=== PATIENT | male | born 1975 | race Caucasian/White ===

== ENCOUNTER 2022-12-05 07:58 | Outpatient (OUT) | payer BC, OTHER, SELFPAY ==
--- NOTE | 2022-12-05 08:20 | ECG_ITS ---
[facility] Test Date: 2022-12-05 Pat Name: Driss Nunez Department: Room: - Gender: Male Cost Estimating Engineer: : 1975 Requested By: KASSANDRA JUAN Order Number: [id number] Reading MD: CECIL SU Measurements Intervals Beyer Rate: 45 P: 19 SD: 160 QRS: -8 QRSD: 109 T: 11 QT: 415 QTc: 362 Interpretive Statements SINUS BRADYCARDIA Non-Specific T wave inversion in III No previous ECG available for comparison Electronically Signed On 12-08-2022 7:44:48 EDT by CECIL SU
[2022-12-05 09:26] LABS: Basophils Percent Auto 0.4 % (0.2-2.0); Eosinophils Absolute Auto 0.1 10^3/uL (0.0-0.7); Hematocrit 44.8 % (42.0-54.0); Hemoglobin 16.2 g/dL (14.0-18.0); Immature Granulocytes Abs Auto 0.01 10^3/uL (0.00-0.03); Immature Granulocytes Pct Auto 0.2 % (0.0-0.5); Lymphocytes Absolute Auto 1.4 10^3/uL (1.2-3.8); Lymphocytes Percent Auto 24.7 % (20.5-60.0); Mean Corpuscular HGB Conc 36.2 g/dL (29.9-35.2); Mean Corpuscular Hemoglobin 28.7 pg (25.9-34.0); Mean Corpuscular Volume 79.4 fL (80.0-94.0); Mean Platelet Volume 8.8 fL (9.5-13.5); Monocytes Absolute Auto 0.5 10^3/uL (0.3-0.8); Monocytes Percent Auto 8.8 % (1.7-12.0); Neutrophils Absolute Auto 3.6 10^3/uL (1.4-6.5); Neutrophils Percent Auto 63.9 % (43.0-75.0); Platelet Count 161 10^3/uL (150-450); Red Blood Count 5.64 10^6/uL (4.70-6.10); Red Cell Distribution Width 12.6 % (11.0-15.0); White Blood Count 5.6 10^3/uL (4.0-11.0)
--- NOTE | 2022-12-05 09:27 | P.GSHP_ITS ---
History of Present Illness History of Present Illness Chief complaint: PAT visit Narrative: Patient is a very pleasant 47-year-old male who presents for preadmission testing. The patient states he's been struggling with scrotal pain and swelling, and it has been determined that he has multiple spermatoceles. He denies dysuria, hematuria, abdominal pain, nausea, vomiting, or any other complaints. He does have a history of anxiety, hypertension, and chest pain, he has been evaluated by cardiology and has been determined that his chest pain is not from a cardiac condition. Review of Systems ROS Narrative REVIEW OF SYSTEMS: Negative except as stated in HPI, ten or more systems reviewed. Constitutional: No fever , chills, weakness ENT: No sore throat or epistaxis Cardiovascular: No edema, chest pain, palpitations, or activity intolerance Respiratory: No shortness of breath, cough, or wheezing Musculoskeletal: No joint pain or swelling Gastrointestinal: No abdominal pain, constipation, diarrhea, or vomiting Genitourinary: No dysuria or hematuria Neurological: No numbness, tingling, weakness, or headache Psychiatric: No mood changes PFSH PFS Medical History (Updated 12/05/22 @ 08:38 by Millicent Slade NP) Surgical History (Updated 12/05/22 @ 08:38 by Millicent Slade NP) Family History (Updated 12/05/22 @ 08:38 by Millicent Slade NP) Other Family history of diabetes mellitus Family history of hypertension Rectal cancer Social History (Updated 12/05/22 @ 08:35 by Millicent Slade NP) Within the past year, how often did you have a drink containing alcohol: monthly or less Smoking status: Never smoker Non-prescribed substance use: denies use Previous occupational history: Food And Beverage Assistant Highest level of school completed/degree received: Bachelor's degree Meds Home Medications and Allergies Home Medications Medication Instructions Recorded Confirmed Type amlodipine 5 mg tablet 5 mg PO QDAY 12/05/22 12/05/22 History chlorthalidone 25 mg tablet 25 mg PO .qod 12/05/22 12/05/22 History escitalopram oxalate 10 mg tablet 10 mg PO QDAY 12/05/22 12/05/22 History losartan 100 mg tablet 100 mg PO QDAY 12/05/22 12/05/22 History nebivolol 5 mg tablet 5 mg PO QDAY 12/05/22 12/05/22 History Allergies Allergy/AdvReac Type Severity Reaction Status Date / Time aspirin Allergy Unknown Verified 12/05/22 08:31 Penicillins Allergy Unknown Verified 12/05/22 08:31 Exam Narrative Exam Narrative: Constitutional: Awake, alert, comfortable, well-appearing, nontoxic, interactive, vital signs as charted Head: Normocephalic, atraumatic Neck: Supple, normal appearance, normal range of motion, no meningeal signs, no lymphadenopathy Respiratory: No respiratory distress, breath sounds clear Cardiovascular: Regular rate and rhythm, strong and regular heart tones Abdomen: Nontender, normal bowel sounds, soft, no CVA tenderness Musculoskeletal: Normal gait, no swelling or edema Skin: No rashes or induration, no lesions, only visible skin inspected Neuro: No neurological deficits, normal sensation Psychiatric: Oriented ?3, normal affect Assessment and Plan Assessment and Plan (1) Spermatocele: Plan Left spermatocele ectomy scheduled with Dr. Angulo 12/18/2022.
[2022-12-05 09:34] LABS: Anion Gap 10.9; Calcium 8.6 mg/dL (8.5-10.1); Carbon Dioxide 27.1 mmol/L (21.0-32.0); Chloride 105 mmol/L (98-107); Estimated GFR (African America >60 (>=60); Estimated GFR (Non-African Ame >60 (>=60); Glucose 100 mg/dL (74-106); Sodium 139 mmol/L (136-145)
[2022-12-05 09:52] LABS: INR 1.01; Partial Thromboplastin Time 27.3 sec (22.3-36.2); Prothrombin Time 10.7 sec (9.0-11.6)
== END 2022-12-05 07:59 ==
PROVIDERS: Urology
DX: Z01.810 Encounter for preprocedural cardiovascular examination (principal); Z01.812 Encounter for preprocedural laboratory examination; N43.40 Spermatocele of epididymis, unspecified; M10.9 Gout, unspecified; G43.909 Migraine, unspecified, not intractable, without status migrainosus; H40.9 Unspecified glaucoma; F32.A Depression, unspecified; I10 Essential (primary) hypertension
CPT/HCPCS: 36415; 80048; 85025; 85610; 85730; 93005; G0463

== ENCOUNTER 2022-12-18 06:25 | Day surgery (SDC) | payer BC, OTHER, SELFPAY ==
[2022-12-05 08:36] VITALS: BP 117/77; PULSE 52; RESP 16; TEMP 36.3; O2SAT 97; BMI 32.3
[2022-12-18] VITALS (9 sets, daily range): BP systolic 97–133; BP diastolic 54–84; PULSE 60–88; RESP 10–18; TEMP 36.3–36.9; O2SAT 92–98; BMI 32.4
[2022-12-18] MEDS: LACTATED RINGER'S SOLUTION 1,000 ML 50 ML IV ×2 (07:02→09:09)
[2022-12-18] MEDS: CIPROFLOXACIN IN 5 % DEXTROSE 400 MG/200 ML PIGGYBACK 200 MG IV (07:26)
[2022-12-18] MEDS: BACITRACIN OINTMENT 28.4 GM TUBE 1 APPLIC TOPICAL (09:30)
--- NOTE | 2022-12-18 09:36 | PM.URSON ---
Urology Surgery Operative Note Operative Note Procedure Date: 12/18/22 Time Out Performed: yes Pre-op Diagnosis: multiple left spermatoceles Post-op Diagnosis: same Procedures performed: #1. Left hemiscrotal exploration. #2. Left spermatocele ectomy ?5. #3. Left hydrocelectomy. Anesthesia: other (Gen. by LMA) Primary Surgeon: Jack Angulo Complications: none Estimated blood loss (mL): 5 Findings: #1. Multiple spermatoceles. #2. Splayed and nearly obliterated epididymis. Specimens: #1. Hydrocele sac. #2. Multiple spermatoceles. Drains: none Indications for Procedures: this gentleman has bilateral spermatoceles more on the left on the right. These are bothersome for him. He is desirous for attempted surgical correction. He has signed an informed consent for left hemiscrotal exploration and spermatocele ectomy. He understands all the risks involved and specifically the risk for recurrence and the possible need for further operations for this problem. Detailed description of Procedure: the patient was brought to the operating room and placed on the operating room table in the supine position. SCDs were placed on his lower extremities and turned on and functioning during the entire case. Timeout was done by all parties in the room. We all agreed upon the patient's identification and the planned procedures for this patient. Gen. anesthesia was then administered via LMA. His genitalia were sterilely prepped and draped in the usual fashion. I started by making a left transverse hemiscrotal incision with a 15 blade scalpel. Sharp dissection was carried down through the scrotal layers until I arrived at the 1st fluid-filled tense sac. This was an atypical situation in that it aappeared as though this gentleman had had prior operations on his left scrotum. The tunica vaginalis was scarred over the spermatoceles and creating compartments in which lied the spermatoceles.I then bluntly freed up the left hemiscrotal contents and sharply and bluntly dissected it free from the gubernacular attachments. The spermatic cord was identified and bluntly freed up. I had to sharply dissect through the tunica vaginalis and free up the spermatoceles. I ended up resecting redundant tunica vaginalis. There was a mild amount of fluid within the tunica vaginalis. I then started on the largest and most cephalad spermatocele and sharply tediously dissected this out and amputated it. The epididymis was splayed over one of the spermatoceles and it was nearly obliterated. This had to be sharply dissected free to remove the spermatocele. I then sequentially dissected out each of the remaining spermatoceles in a similar fashion thus freeing them up and sending all of them for permanent sections. There were a total of 5. A couple of them were only 1-2 cm in size and incorporated into the tunica vaginalis specimen. Upon completion, we then irrigated the testicle , epididymis and spermatic cord along with the left hemiscrotum. Small bleeders were coagulated with the needle-tipped Bovie cautery. This was done numerous times until there was no evidence of bleeding whatsoever. I then placed the testicle epididymis and spermatic cord within the left hemiscrotum in the proper anatomic orientation. I then closed the dartos layer with 3-0 Vicryl in a running fashion. The scrotal skin was then closed with 4-0 Vicryl in a running fashion. Gauze fluffs were placed and a scrotal support was applied. He was then transferred to [facility] bed and wheeled to PACU in stable condition. He'll be discharged to home later today with a prescription for [place] 5/325 #15.
--- NOTE | 2022-12-18 10:04 | PC.NURSE ---
ice pack applied over gown to scrotal incisional site
--- NOTE | 2022-12-18 11:33 | PC.NURSE ---
PATIENT HAS AMBULETED AND URINATED. PATIENT HAS ALSO ATE GRANOLA BAR AND DRANK CRANBERRY JUICE. NO NAUSEA PRESENT AND PAIN IS TOLERABLE AT A 4.
== END 2022-12-18 11:34 | disposition home or self-care (01) ==
PROVIDERS: Visit Provider Urology
PROC: (CPT 54840; principal; 2022-12-18 07:30)
DX: N43.42 Spermatocele of epididymis, multiple (principal); N52.9 Male erectile dysfunction, unspecified; I10 Essential (primary) hypertension
CPT/HCPCS: 54840; 55040; 36415; 88302; J2704